=== PATIENT | male | born 1945 | race Caucasian/White ===

== ENCOUNTER 2021-02-03 08:38 | Outpatient (CLI) | payer MEDICARE, OTHER | END 2021-02-03 08:39 | disposition home or self-care (01) | LOC: CSHULT 08:38 | PROVIDERS: ATTEND Family Medicine | DX: Z13.6 Encounter for screening for cardiovascular disorders (principal) | CPT/HCPCS: 76706 ==

== ENCOUNTER 2021-12-23 07:30 | Outpatient (CLI) | payer MEDICARE, OTHER | END 2021-12-23 07:31 | disposition home or self-care (01) | LOC: CSHULT 07:30 | PROVIDERS: ATTEND Family Medicine | DX: R17 Unspecified jaundice (principal); K80.20 Calculus of gallbladder without cholecystitis without obstruction; K76.89 Other specified diseases of liver | CPT/HCPCS: 76705 ==

== ENCOUNTER 2022-08-13 12:31 | Observation (INO) | payer MEDICARE, OTHER ==
[2022-08-13 14:42] LABS: #Eosinphils 0.2 10x3/uL (0.0-0.5); #Monocytes 0.5 10x3/uL (0.0-1.1); #Neutrophils 7.1 10x3/uL (1.5-8.4); %Basophils 0.5 % (0.0-2.0); %Eosinophils 1.9 % (0.0-6.0); %Monocytes 5.1 % (0.0-10.0); %Neutrophils 79.9 % (40.0-75.0); Hemoglobin 15.7 g/dL (13.5-17.5); Mean Corpuscular HGB CONC 33.1 g/dL (32.0-36.0); Mean Corpuscular Hemoglobin 29.8 pg (27.0-33.0); Mean Corpuscular Volume 90.3 fl (81.2-95.1); Mean Platelet Volume 12.1 fl (7.4-10.4); Platelet Count 130 10x3/uL (150-450); RBC Distribution Width 14.6 % (11.5-14.5); Red Blood Cell (RBC) Count 5.26 10x6/uL (4.32-5.72); White Blood Cell (WBC) Count 8.8 10x3/uL (3.5-10.5)
[2022-08-13 14:50] LABS: Anion Gap 13 mmol/L (10-20); BUN (Urea Nitrogen) 19 mg/dL (8.4-25.7); Calc. Creatinine Clearance 0 mL/min (70-130); Calcium 9.4 mg/dL (7.8-10.44); Carbon Dioxide 23 mmol/L (23-31); Chloride 113 mmol/L (98-107); Estimated GFR 67; Glucose 147 mg/dL (83-110); Sodium 145 mmol/L (136-145)
[2022-08-13 15:16] LABS: CKMB 2.3 ng/mL (0-6.6)
[2022-08-13] MEDS ORDERED: Aspirin Chewable 81 MG TAB ONE (16:05)
[2022-08-13] MEDS ORDERED: Acetaminophen 325 MG TAB PO PRN (16:41)
[2022-08-13] MEDS ORDERED: Senokot S 8.6-50 MG TAB PO PRN (16:41)
[2022-08-13] MEDS ORDERED: Ondansetron PF 4 MG/2 ML Vial IVP PRN (16:41)
[2022-08-13] MEDS ORDERED: HumaLOG 300 UNITS/3 ML VIAL SC PRN (17:19)
[2022-08-13] MEDS ORDERED: Dextrose 50% Abboject 50 ML SYRINGE SLOW IVP PRN (17:19)
[2022-08-13] MEDS ORDERED: Dextrose 5% in Water 1,000 ML IV PRN (17:19)
[2022-08-13 17:45] VITALS: BMI 29.6
[2022-08-13 19:09] LABS: Troponin I 0.243 ng/mL (< 0.028)
[2022-08-13 20:31] LABS: SARS-CoV-2 NAA Rapid Test Not Detected (NotDetected)
[2022-08-13] MEDS ORDERED: Donepezil HCl 5 MG TAB PO SCH (21:00)
[2022-08-13] MEDS ORDERED: Sacubitril 49 MG/Valsartan 51 MG TABLET PO SCH (21:00)
[2022-08-13] MEDS ORDERED: Mirtazapine 15 MG TAB PO SCH (21:00)
[2022-08-13] MEDS ORDERED: Atorvastatin Calcium 40 MG TAB PO SCH (21:00)
[2022-08-13] MEDS: Famotidine 20 MG TAB PO SCH (22:00)
[2022-08-13] MEDS: Acetaminophen 325 MG TAB PO SCH (22:11)
[2022-08-13] MEDS ORDERED: Apixaban 5 MG TAB PO SCH (23:59)
[2022-08-14 05:02] LABS: #Eosinphils 0.3 10x3/uL (0.0-0.5); #Monocytes 0.5 10x3/uL (0.0-1.1); #Neutrophils 3.6 10x3/uL (1.5-8.4); %Basophils 0.5 % (0.0-2.0); %Eosinophils 3.8 % (0.0-6.0); %Lymphocytes 34.1 % (18.0-47.0); %Monocytes 7.2 % (0.0-10.0); %Neutrophils 54.1 % (40.0-75.0); Hemoglobin 14.7 g/dL (13.5-17.5); Mean Corpuscular HGB CONC 34.3 g/dL (32.0-36.0); Mean Corpuscular Hemoglobin 30.2 pg (27.0-33.0); Mean Corpuscular Volume 88.1 fl (81.2-95.1); Mean Platelet Volume 12.4 fl (7.4-10.4); Platelet Count 117 10x3/uL (150-450); RBC Distribution Width 14.6 % (11.5-14.5); Red Blood Cell (RBC) Count 4.86 10x6/uL (4.32-5.72); White Blood Cell (WBC) Count 6.7 10x3/uL (3.5-10.5)
[2022-08-14 05:15] LABS: INR-International Normal Ratio 1.1; PTT 29.3 sec (22.0-33.0); Prothrombin Time 11.4 sec (9.5-12.1)
[2022-08-14 05:27] LABS: Anion Gap 11 mmol/L (10-20); BUN (Urea Nitrogen) 16 mg/dL (8.4-25.7); Calc. Creatinine Clearance 96 mL/min (70-130); Calcium 9.2 mg/dL (7.8-10.44); Carbon Dioxide 23 mmol/L (23-31); Chloride 112 mmol/L (98-107); Estimated GFR 88; Glucose 81 mg/dL (83-110); Magnesium 1.9 mg/dL (1.6-2.6); Potassium 3.8 mmol/L (3.5-5.1); Sodium 142 mmol/L (136-145)
[2022-08-14 05:39] LABS: Cholesterol 92 mg/dl (< 200 Desired); HDL Cholesterol 31 mg/dL (>60 Neg Risk); LDL Cholesterol, Calculated 42 mg/dL; Triglycerides 95 mg/dL (Less than 150)
[2022-08-14 05:48] LABS: Free T4 (Free Thyroxine) 0.9 ng/dL (0.70-1.48); Thyroid Stimulating Hormone 2.1082 uIU/mL (0.35-4.94)
[2022-08-14 06:03] LABS: Platelet Clumps SLIGHT; Platelet Morphology Comment Appears Decreased; RBC Morphology Normal
[2022-08-14] MEDS: Acetaminophen 325 MG TAB PO SCH ×2 (06:11→12:15)
[2022-08-14] MEDS ORDERED: Carvedilol 3.125 MG TAB PO SCH (08:00)
[2022-08-14] MEDS ORDERED: Apixaban 5 MG TAB PO SCH (09:00)
[2022-08-14] MEDS ORDERED: Cholecalciferol 1,000 UNITS (25 MCG) TAB PO SCH (09:00)
[2022-08-14] MEDS ORDERED: Topiramate 25 MG TAB PO SCH (09:00)
[2022-08-14] MEDS ORDERED: PSYLLIUM HUSK 0.4 GM PO SCH (09:00)
[2022-08-14] MEDS ORDERED: Enoxaparin Sodium 40 MG/0.4 ML SYRINGE SC SCH (09:00)
[2022-08-14] MEDS: Famotidine 20 MG TAB PO SCH (10:15)
[2022-08-14 12:25] VITALS: BP 106/73; TEMP 98.1
[2022-08-14 13:37] LABS: Hemoglobin A1c 5.4 % (4.0-6.0)
== END 2022-08-14 15:35 | disposition home or self-care (01) ==
LOC: CSHERS 12:31 → CSHTELE 17:16
PROVIDERS: ADMIT Internal Medicine Geriatric Medicine; ATTEND Hospitalist
DX: R42 Dizziness and giddiness (principal); R51.9 Headache, unspecified; R55 Syncope and collapse; R00.1 Bradycardia, unspecified; I25.5 Ischemic cardiomyopathy; I48.91 Unspecified atrial fibrillation; I48.92 Unspecified atrial flutter; G25.0 Essential tremor; F41.9 Anxiety disorder, unspecified; G20 Parkinson's disease; F02.80 Dementia in other diseases classified elsewhere, unspecified severity, without behavioral disturbance, psychotic disturbance, mood disturbance, and anxiety; I25.10 Atherosclerotic heart disease of native coronary artery without angina pectoris; I11.0 Hypertensive heart disease with heart failure; I50.20 Unspecified systolic (congestive) heart failure; E78.5 Hyperlipidemia, unspecified; E11.9 Type 2 diabetes mellitus without complications; G47.33 Obstructive sleep apnea (adult) (pediatric); Z86.73 Personal history of transient ischemic attack (TIA), and cerebral infarction without residual deficits; Z79.84 Long term (current) use of oral hypoglycemic drugs; Z79.899 Other long term (current) drug therapy; Z88.5 Allergy status to narcotic agent; Z88.8 Allergy status to other drugs, medicaments and biological substances; Z98.890 Other specified postprocedural states
CPT/HCPCS: 71045; 80048 ×2; 80061; 82553; 82962; 83036; 83735; 84439; 84443; 84484 ×2; 85025 ×2; 85610; 85730; 93005; 93306; 94760; 97116; 99285; G0378 ×2; U0002; 36416

== ENCOUNTER 2022-09-04 09:18 | Outpatient (CLI) | payer MEDICARE, OTHER ==
[2022-09-04] MEDS ORDERED: Iopamidol 300 61% 100 ML VIAL FS ONE (09:41)
== END 2022-09-04 09:19 | disposition home or self-care (01) ==
LOC: CSHCT 09:18
PROVIDERS: ATTEND Physician Assistant Medical
DX: R17 Unspecified jaundice (principal); R19.5 Other fecal abnormalities; R19.7 Diarrhea, unspecified; R63.4 Abnormal weight loss; K63.89 Other specified diseases of intestine
CPT/HCPCS: 74177; Q9967

== ENCOUNTER 2022-10-31 05:02 | Emergency (ER) | payer MEDICARE, OTHER | END 2022-10-31 07:00 | disposition home or self-care (01) | LOC: CSHERS 05:08 | DX: S00.83XA Contusion of other part of head, initial encounter (principal); E78.5 Hyperlipidemia, unspecified; I10 Essential (primary) hypertension; E11.9 Type 2 diabetes mellitus without complications; W18.30XA Fall on same level, unspecified, initial encounter; Y92.091 Bathroom in other non-institutional residence as the place of occurrence of the external cause | CPT/HCPCS: 70450 ==